=== PATIENT | female | born 1990 | race Hispanic/Latino ===

== ENCOUNTER 2023-01-10 20:39 | Emergency (ER) | payer OTHER ==
[~2023-01-10] VITALS: Ht 167.6 cm; Wt 78.9 kg
[2023-01-10 22:00] VITALS: BP 128/78; PULSE 88; RESP 18; O2SAT 99
[2023-01-10] MEDS ORDERED: KETOROLAC 30MG VIAL (30MG/ML) ONE (23:32)
[2023-01-10 23:41] LABS: RAPID GROUP A STREP negative (NEGATIVE)
[2023-01-10 23:46] LABS: SARS-CoV-2, RNA, NAAT NEGATIVE SARS CoV-2 (NEGATIVE)
[2023-01-10 23:49] LABS: APPEARANCE,URINE CLEAR (CLEAR); BILIRUBIN,URINE NEGATIVE (NEGATIVE); COLOR,URINE LIGHT-YELLOW (YELLOW); GLUCOSE, URINE (UA) NEGATIVE (NEGATIVE); HCG,QUALITATIVE URINE NEGATIVE (NEGATIVE); KETONES,URINE NEGATIVE (NEGATIVE); LEUKOCYTE ESTERASE ,URINE 250 Leu/uL (NEGATIVE); NITRATE,URINE NEGATIVE (NEGATIVE); OCCULT BLOOD,URINE MODERATE (NEGATIVE); PH,URINE 7.5 (5.0-8.0); PROTEIN,URINE NEGATIVE (NEGATIVE); UROBILINOGEN,URINE 0.2 mg/dL (0.2-1.0)
[2023-01-10 23:50] LABS: INFLUENZA TYPE A Negative For Type A (NEGATIVE); INFLUENZA TYPE B Negative For Type B (NEGATIVE)
[2023-01-10 23:50] LABS: ADD UA MICROSCOPIC YES
[2023-01-10] MEDS ORDERED: IBUP-2070 PO (23:50)
[2023-01-10] MEDS ORDERED: DOXY-469 PO (23:50)
[2023-01-10] MEDS ORDERED: CEPH500B PO (23:55)
[2023-01-11] MEDS ORDERED: KETOROLAC 60 MG VIAL (30MG/ML) IM ONE
[2023-01-11 00:06] LABS: OTHER CASTS, URINE 1 /LPF (None Seen); SQUAMOUS EPITHELIAL CELL,UR MOD /HPF (0-2)
== END 2023-01-11 00:09 | disposition home or self-care (01) ==
LOC: EDH 20:39
DX: N75.8 Other diseases of Bartholin's gland (principal); N39.0 Urinary tract infection, site not specified; Z20.822 Contact with and (suspected) exposure to COVID-19
CPT/HCPCS: 99283; 87635; 87088; 87880; 87804 ×2; 81001; 81025; 96372; C9803; J1885